=== PATIENT | female | born 1995 | race Caucasian/White ===

== ENCOUNTER 2017-06-10 05:07 | Emergency (ER) | payer MEDICAID, OTHER ==
[2017-06-10] MEDS ORDERED: Sodium Chloride 0.9% 1,000 ML IV ONE ×2 (05:29→07:20)
[2017-06-10] MEDS ORDERED: Ondansetron 4 MG/2 ML SDV IVPUSH ONE (05:29)
[2017-06-10 05:51] LABS: CHLORIDE,CL 106 mmol/L (98-110); SODIUM,NA 139 mmol/L (136-146)
[2017-06-10] MEDS ORDERED: Iopamidol 755 MG/ML 500 ML Multipack Bottle IVPUSH STA (07:01)
[2017-06-10] MEDS ORDERED: Pantoprazole 40 MG Vial IVPUSH ONE (07:08)
--- NOTE | 2017-06-10 07:15 | EDM.PDOC ---
ED HPI GENERAL MEDICAL PROBLEM - General Chief Complaint: Gastrointestinal Problem Stated Complaint: VOMITING BLOOD Time Seen by Provider: 06/10/17 07:22 - History of Present Illness INITIAL COMMENTS - FREE TEXT/NARRATIVE: HISTORY AND PHYSICAL: History of present illness: Patient is 21-year-old female sensory concern of 24 hours of vomiting and diarrhea she states she had bloody emesis times several she also reports some bloody diarrhea she states her diarrhea has been as frequent as hourly. There's been no reported fever chills she denies vaginal discharge or irregular bleeding urinary symptoms. Review of systems: As per history of present illness and below otherwise all systems reviewed and negative. Past medical history: As per history of present illness and as reviewed below otherwise noncontributory. Surgical history: As per history of present illness and as reviewed below otherwise noncontributory. Social history: No reported history of drug or alcohol abuse. Family history: As per history of present illness and as reviewed below otherwise noncontributory. Physical exam: HEENT: Atraumatic, normocephalic, pupils reactive, negative for conjunctival pallor or scleral icterus, mucous membranes dry, throat clear, neck supple, nontender, trachea midline. Lungs: Clear to auscultation, breath sounds equal bilaterally, chest nontender. Heart: S1S2, regular, negative for clicks, rubs, or JVD. Abdomen: Soft, nondistended, no localized tenderness. Negative for masses or hepatosplenomegaly. Negative for costovertebral tenderness. Pelvis: Stable nontender. Genitourinary: Deferred. Rectal: Deferred. Extremities: Atraumatic, negative for cords or calf pain. Neurovascular unremarkable. Neuro: Awake, alert, oriented. Cranial nerves II through XII unremarkable. Cerebellum unremarkable. Motor and sensory unremarkable throughout. Exam nonfocal. Diagnostics: CBC CMP amylase lipase UA hCG stool for C&S O&P and C. difficile influenza screening CT abdomen and pelvis Therapeutics: Dermal saline 1 L bolus Zofran 4 mg IV Protonix 80 mg IV Impression: #1 gastroenteritis #2 dehydration Definitive disposition and diagnosis as appropriate pending reevaluation and review of above. abdomen Pain Score (Numeric/FACES): 5 - Related Data Allergies Allergy/AdvReac Type Severity Reaction Status Date / Time No Known Allergies Allergy Verified 06/10/17 05:11 Home Meds: Home Meds Albuterol [Proventil HFA] 6.7 gm INH ASDIRECTED 06/10/17 [History] Past Medical History - Past Health History Medical/Surgical History: Denies Medical/Surgical History HEENT History: Reports: Impaired Vision Other HEENT History: wears glasses Respiratory History: Reports: Asthma - Infectious Disease History Infectious Disease History: Reports: Chicken Pox Social & Family History - Family History Family Medical History: Noncontributory - Tobacco Use Smoking Status *Q: Never Smoker - Recreational Drug Use Recreational Drug Use: No ED ROS GENERAL - Review of Systems Review Of Systems: ROS reveals no pertinent complaints other than HPI. ED EXAM, GENERAL - Physical Exam Exam: See Below (See dictation) Course - Vital Signs Last Recorded V/S: Last Vital Signs Temp 36.2 C 06/10/17 05:07 Pulse 100 06/10/17 05:07 Resp 18 06/10/17 05:07 BP 123/77 06/10/17 05:07 Pulse Ox 98 06/10/17 05:07 - Orders/Labs/Meds Orders: Active Orders 24 hr Category Date Time Status Abdomen Pelvis w Cont [CT] Stat Exams 06/10/17 05:29 Ordered CULTURE STOOL + CAMPY+SHIGATOX [RM] Stat Lab 06/10/17 07:09 Uncollected Clostridium Difficile [CDIFF TOX A+B] [OP] Stat Lab 06/10/17 07:09 Uncollected Pantoprazole [ProTONIX IV] Med 06/10/17 07:08 Once 80 mg IVPUSH .BOLUS ONE Medication Orders Pantoprazole Sodium (Protonix Iv) 80 mg IVPUSH .BOLUS ONE Stop: 06/10/17 07:09 Labs: Laboratory Tests 06/10/17 06/10/17 06/10/17 Range/Units 05:15 05:15 06:15 WBC 13.20 H (4.0-11.0) K/uL RBC 5.42 (4.30-5.90) M/uL Hgb 17.0 H (12.0-16.0) g/dL Hct 48.1 H (36.0-46.0) % MCV 88.7 (80.0-98.0) fL MCH 31.4 (27.0-32.0) pg MCHC 35.3 (31.0-37.0) g/dL RDW Std Deviation 39.6 (28.0-62.0) fl RDW Coeff of Sharon 13 (11.0-15.0) % Plt Count 339 (150-400) K/uL MPV 10.90 (7.40-12.00) fL Neut % (Auto) 92.0 H (48.0-80.0) % Lymph % (Auto) 3.8 L (16.0-40.0) % Glenn % (Auto) 3.9 (0.0-15.0) % Eos % (Auto) 0.1 (0.0-7.0) % Baso % (Auto) 0.2 (0.0-1.5) % Neut # (Auto) 12.2 H (1.4-5.7) K/uL Lymph # (Auto) 0.5 L (0.6-2.4) K/uL Glenn # (Auto) 0.5 (0.0-0.8) K/uL Eos # (Auto) 0.0 (0.0-0.7) K/uL Baso # (Auto) 0.0 (0.0-0.1) K/uL Nucleated RBC % 0.0 /100WBC Nucleated RBCs # 0 K/uL Sodium 139 (136-146) mmol/L Potassium 4.4 (3.5-5.1) mmol/L Chloride 106 (98-110) mmol/L Carbon Dioxide 19 L (21-31) mmol/L BUN 16 (6.0-23.0) mg/dL Creatinine 1.0 (0.6-1.5) mg/dL Est Cr Clr Drug Dosing 78.73 mL/min Estimated GFR (MDRD) > 60.0 ml/min Glucose 179 H (60-110) mg/dL Calcium 9.9 (8.8-10.8) mg/dL Total Bilirubin 1.4 (0.1-1.5) mg/dL AST 43 H (5-40) IU/L ALT 41 (8-54) IU/L Alkaline Phosphatase 46 (40-150) Total Protein 8.3 H (6.0-8.0) g/dL Albumin 4.6 (3.5-5.0) g/dL Globulin 3.7 H (2.0-3.5) g/dL Albumin/Globulin Ratio 1.2 L (1.3-2.8) Lipase 18 (7-80) U/L HCG, Quant < 1.2 mIU/mL Urine Color YELLOW Urine Appearance CLEAR Urine pH 6.0 (5.0-8.0) Ur Specific Central >= 1.030 (1.001-1.035) Urine Protein 30 (NEGATIVE) mg/dL Urine Glucose (UA) NEGATIVE (NEGATIVE) mg/dL Urine Ketones 40 H (NEGATIVE) mg/dL Urine Occult Blood TRACE-LYSED (NEGATIVE) Urine Nitrite NEGATIVE (NEGATIVE) Urine Bilirubin SMALL H (NEGATIVE) Urine Ictotest NEGATIVE Urine Urobilinogen 0.2 (<2.0) EU/dL Ur Leukocyte Esterase NEGATIVE (NEGATIVE) Urine RBC 1-3 (0-2/HPF) Urine WBC 1-3 (0-5/HPF) Ur Epithelial Cells FEW (NONE-FEW) Urine Bacteria FEW (NEGATIVE) Urine Mucus LIGHT (NONE-MOD) Meds: Medications Generic Name Dose Route Start Last Admin Trade Name Freq PRN Reason Stop Dose Admin Pantoprazole Sodium 80 mg 06/10/17 07:08 Protonix Iv IVPUSH 06/10/17 07:09 .BOLUS ONE Discontinued Medications Generic Name Dose Route Start Last Admin Trade Name Freq PRN Reason Stop Dose Admin Sodium Chloride 1,000 mls @ 999 mls/hr 06/10/17 05:29 06/10/17 05:32 Normal Saline IV 06/10/17 06:29 999 mls/hr .Bolus ONE Administration Iopamidol 100 ml 06/10/17 07:01 Isovue Multipack-370 (76%) IVPUSH 06/10/17 07:02 ONETIME STA Ondansetron HCl 4 mg 06/10/17 05:29 06/10/17 05:33 Zofran IVPUSH 06/10/17 05:30 4 mg ONETIME ONE Administration Departure - Departure Time of Disposition: 07:17 Disposition: Home, Self-Care 01 Condition: Good Clinical Impression: Gastroenteritis, Dehydration - Discharge Information Referrals: PCP,None [Primary Care Provider] - Additional Instructions: The following information is given to patients seen in the emergency department who are being discharged to home. This information is to outline your options for follow-up care. We provide all patients seen in our emergency department with a follow-up referral. The need for follow-up, as well as the timing and circumstances, are variable depending upon the specifics of your emergency department visit. If you don't have a primary care physician on staff, we will provide you with a referral. We always advise you to contact your personal physician following an emergency department visit to inform them of the circumstance of the visit and for follow-up with them and/or the need for any referrals to a consulting specialist. The emergency department will also refer you to a specialist when appropriate. This referral assures that you have the opportunity for followup care with a specialist. All of these measure are taken in an effort to provide you with optimal care, which includes your followup. Under all circumstances we always encourage you to contact your private physician who remains a resource for coordinating your care. When calling for followup care, please make the office aware that this follow-up is from your recent emergency room visit. If for any reason you are refused follow-up, please contact the [facility] emergency department at and asked to speak to the emergency department charge nurse. Push fluids Zofran as prescribed Protonix as prescribed follow-up primary medical doctor 1-2 days return as needed as discussed - My Orders Last 24 Hours: My Active Orders 06/10/17 05:29 Abdomen Pelvis w Cont [CT] Stat 06/10/17 07:08 Pantoprazole [ProTONIX IV] 80 mg IVPUSH .BOLUS ONE 06/10/17 07:09 CULTURE STOOL + CAMPY+SHIGATOX [RM] Stat Clostridium Difficile [CDIFF TOX A+B] [OP] Stat - Assessment/Plan Last 24 Hours: My Active Orders 06/10/17 05:29 Abdomen Pelvis w Cont [CT] Stat 06/10/17 07:08 Pantoprazole [ProTONIX IV] 80 mg IVPUSH .BOLUS ONE 06/10/17 07:09 CULTURE STOOL + CAMPY+SHIGATOX [RM] Stat Clostridium Difficile [CDIFF TOX A+B] [OP] Stat
--- NOTE | 2017-06-10 16:00 | CT ---
EXAM DATE: 06/10/17 PATIENT'S AGE: 21 Patient: NOA AN Facility: [place], [place] Site . Site : 1995 Study: CT Abdomen/Pelvis [id number] 7:18:29 AM Ordering Physician: Doctor Concepcion Final Report: INDICATION: abd pain, rectal bleeding, bloody vomitus HISTORY: Abdominal pain. Rectal bleeding. COMPARISON: None. TECHNIQUE: CT of the abdomen and pelvis. 100 cc of Isovue-370 IV. Coronal/sagittal reconstruction images. FINDINGS: Lung bases: No pleural or pericardial effusion. The heart size is normal. The lung bases demonstrate no acute airspace disease. There is no basilar pneumothorax. Abdomen/pelvis: No solid hepatic mass. No dilation of intrahepatic biliary radicals. No perihepatic ascites. The spleen size is normal. There is no pancreatic mass or pancreatic duct dilation. There is no glandular atrophy. No adrenal mass. No hydronephrosis. No perinephric edema. The exam was performed during the urographic phase. There is no filling defects within the urinary bladder. No adnexal mass. There is no wall thickening within the small bowel or colon. No transition point. No mucosal hyper enhancement. The appendix is seen best on series 203, image 35, and series 201, image 107. No findings to indicate acute appendicitis. The celiac axis, SMA, and VIRAL are patent. There is no adenopathy by size criteria in the pelvis, retroperitoneum, gastrohepatic ligament, small bowel mesentery. The bone windows demonstrate no suspicious lytic or blastic bone lesions. The alignment is preserved on sagittal reconstruction images. IMPRESSION: 1. There are no acute findings seen to explain the patient`s pain. 2. No evidence for a small bowel or colonic obstruction. 3. There is no fold thickening, mucosal hyper enhancement, or perienteric edema within the small bowel or colon. 4. The exam was performed during the urographic phase secondary to faulty IV tubing. No filling defects are identified within the system. Symmetric nephrograms. Dictated by River Carter MD @ 06/10/2017 7:38:51 AM Dictated by: River Carter MD @ 06/10/2017 07:39:03 (Electronic Signature) Report Signed by Proxy. [facility]ys
== END 2017-06-10 08:45 | disposition home or self-care (01) ==
LOC: MW.ED 05:07
DX: K52.9 Noninfective gastroenteritis and colitis, unspecified (principal); E86.0 Dehydration; J45.909 Unspecified asthma, uncomplicated
CPT/HCPCS: 36415; 74177; 80053; 81001; 83690; 84702; 85025; 96361; 96374; 99284; C9113; J2405; J7040; Q9967